=== PATIENT | female | born 1965 | race Asian ===

== ENCOUNTER 2017-10-15 05:16 | Inpatient (IN) | payer OTHER ==
[~2017-10-15] VITALS: Ht 162.6 cm; Wt 84.4 kg
--- NOTE | ~2017-10-15 | S ---
[facility] [place] [address] SURGICAL PATH RPT PROCEDURE Name: DERIC HAIRSTON Room #: 436-P ADM IN M.R.#: [id number] Admission: 10/15/17 Date of : 61 Discharge: Report #: [id number] Path Case #: [id number] PATHOLOGY REPORT COLLECTION DATE: 10/15/2017 RECEIVED DATE: 10/15/2017 SUBMITTING PHYS: Dr. Cortez Moralse OTHER PHYS: Dr. Charbel Blanco, SPECIMEN(S) RECEIVED: A.Gallbladder B.Appendix C.Abdominal scar D.Hernia sac * * * * * * * * * * * * FINAL DIAGNOSIS: A. Gallbladder, cholecystectomy: - Mild chronic cholecystitis. - Cholelithiasis. - One incidental lymph node. B. Appendix, appendectomy: - Fibrous obliteration of the tip. C. Abdominal scar: - Reactive changes and dense collagen compatible with scar. D. Hernia sac: - Congested tissue with mild chronic inflammation compatible with a hernia sac. (IUV:amador; 10/17/2017) PATHOLOGIST: Esme Machado M.D. REPORT ELECTRONICALLY SIGNED BY: Esme Machado M.D. DATE/TIME: 10/17/2017 13:43 * * * * * * * * * * * * GROSS PATHOLOGY: A. Received in formalin labeled "Deric Hairston, gallbladder," is an 8.2 x 3.6 x 3.0 cm, intact gallbladder with jones-mcdonald serosal surfaces. Opening the gallbladder reveals a velvety, bile-stained mucosa and an average wall thickness of 0.1 cm. Calculi are present displaying a yellow-mcdonald and multifaceted appearance, and no masses are noted grossly. At the cystic neck, there is a single lymph node present measuring 1.0 cm in maximum dimensions displaying pale mcdonald cut surfaces. [employer]ator [employer] Supervisor sections from the body and fundus are submitted along with the proximal margin in cassette A1, to include the lymph node, bisected. [address] [address] SURGICAL PATH RPT PROCEDURE Name: DERIC HAIRSTON Cassandra Room #: 436-P [facility] IN ..#: [id number] Admission: 10/15/17 Date of : 61 Discharge: Report #: [id number] Path Case #: [id number] B. Received in formalin labeled "Deric Hairston, appendix," is an appendix measuring 5.6 cm in length and up to 1.0 cm in diameter with a moderate amount of attached mesoappendix. The serosal surface is pink-mcdonald, glistening in appearance. Sectioning reveals a pinpoint to slightly patent lumen filled with fecal material. Incinerator Plant Supervisor sections are submitted in cassette B1. C. The specimen is received in formalin labeled "Deric Hairston, abdominal scar". Received is an elongated segment of white-mcdonald to dusky jones-mcdonald, wrinkled skin measuring 25.6 x 1.0 x 1.7 cm in greatest dimensions. The specimen is submitted representatively in cassette C1. D. Received in formalin labeled "Deric Hairston, hernia sac," are two pieces of fibroadipose tissue with attached fibromembranous tissue measuring 18.1 x 12.5 x 6.6 cm in aggregate dimensions. No nodules or lesions are identified. Incinerator Plant Supervisor tissue is submitted in cassette D1. (CAA; 10/16/2017) CLINICAL HISTORY: Ventral hernia INITIAL CPT CODE(S): A; 69677 B; 79080 C; 53183 D; 04168 Professional services performed by [facility] at [facility] [address], [place] [address] Technical services performed by [facility] at [address] [place] [address], [address], [place] [address]. [facility] [address] [place] [address] PHONE: [phone] DIRECTOR: Kishan Brock M.D. * * * END OF REPORT * * *
--- NOTE | ~2017-10-15 | EKG ---
[address] [address] ELECTROCARDIOGRAM REPORT Name: DERIC QUINTANA Room #: 150-3 ADM IN .R.#: [id number] Admission: 10/15/17 Attend Phys: Cortez Morales MD, Discharge: Date of : 61 Report #: [id number] THIS REPORT FOR: //name// [facility] Test Date: 2017-10-15 Test Time: 06:37:06 Pat Name: DERIC QUINTANA Department: Room: 150 3 Gender: F Supervisor [employer]: HOLLY : 1965 Requested By: Delio Vora Order Number: [id number] MD: Willi Bucio Measurements Intervals Clark Rate: 65 P: 7 DE: 156 QRS: 27 QRSD: 111 T: 8 QT: 422 QTc: 439 Interpretive Statements Sinus rhythm No significant abnormality No previous ECG available for comparison Electronically Signed On 10-15-2017 8:07:18 HISTORICAL SITE GUIDE by Willi Bucio [email or web address] <ELECTRONICALLY SIGNED> By: Willi Bucio MD, [facility] 10/15/17 0807 [id number] 0637 Willi Bucio MD, FACC /EPI
--- NOTE | ~2017-10-15 | O ---
[facility] [place] [address] OPERATIVE REPORT Name: DERIC QUINTANA Cassandra Room #: 436-P ADM IN M.R.#: [id number] Admission: 10/15/17 Attend Phys: Cortez Morales MD, Discharge: Date of : 61 Report #: [id number] THIS REPORT FOR: //name// CC: JAYSHREE physician/PCP Cortez Morales DATE OF SERVICE: 10/15/2017 PREOPERATIVE DIAGNOSES: 1. Recurrent incisional ventral hernia. 2. Obesity with a body mass index of 31. 3. Suspected intraabdominal adhesions. 4. Symptomatic cholelithiasis. POSTOPERATIVE DIAGNOSES: 1. Multiple incarcerated recurrent incisional ventral hernias. 2. Obesity with a body mass index of 31. 3. Dense and significant intraabdominal adhesions. 4. Symptomatic cholelithiasis. 5. Appendiceal dilatation and inflammation. 6. Ischemic abdominal wall fascia and hernia sac. 7. Loss of abdominal domain. PROCEDURES PERFORMED: 1. Exploratory laparotomy with extensive lysis of adhesions lasting 195 minutes. 2. Debridement of ischemic abdominal wall fascia and hernia sac. 3. Appendectomy. 4. Cholecystectomy. 5. Complex abdominal wall reconstruction with open repair of multiple incarcerated recurrent incisional ventral hernias with Prolene mesh. 6. Bilateral component separation of the abdominal wall of the transversus abdominis retrorectus (TAR) type. 7. Adjacent tissue transfer closure of the anterior abdominal wall, ultimately measuring 38 x 35 cm in dimension (1330 square cm). 8. Skin reduction surgery. 9. Topical wound VAC placement. 10. This is a modifier 22 procedure for extreme difficulty of procedure necessitating a greater than 3-hour lysis of adhesions coupled with the complex hernia repair techniques needing bilateral component separation to obtain complete abdominal wall closure. This is in addition to debriding the abdominal wall that was nonviable as well as performing adjacent tissue transfer closure of the skin and subcutaneous tissues overlying the fascial closure. This is all in a patient who is slightly obese with a body mass index of 31 with a thick abdominal wall and the procedure took greater than 5 hours as opposed to the usual 60-90 minute procedure. [facility] [address] [place] [address] OPERATIVE REPORT Name: DERIC QUINTANA Room #: 436-P [facility] IN ..#: [id number] Admission: 10/15/17 Attend Phys: Cortez Morales MD, Discharge: Date of : 61 Report #: [id number] SURGEON: Cortez Morales MD STEAM HEATING INSTALLER: Charbel Blanco DO ANESTHESIA: General endotracheal anesthesia with an epidural in place. ESTIMATED BLOOD LOSS: 200 mL COMPLICATIONS: None appreciated. SPECIMENS: 1. Gallbladder to pathology. 2. Appendix to pathology. 3. Nonviable ischemic abdominal wall fascia and hernia sac to pathology. 4. Skin to pathology. INDICATIONS: The patient is a 52-year-old slightly obese female who initially underwent an open Daniel procedure for perforated sigmoid diverticulitis. The patient then underwent an open reversal of her colostomy with suture repair of an incisional ventral hernia and unfortunately, had recurrence of that hernia once again. As the patient's hernia was quite large, she desired definitive surgical management and as this was palpable and expansive, we elected to proceed in the open fashion as well as excising her hypertrophic scar. DESCRIPTION OF PROCEDURE: After explaining the risks, benefits and alternatives of the procedure with the patient in detail in the preoperative holding area and obtaining written consent, the patient was brought to the operating room and placed supine on the operating room table. After conducting a thorough timeout procedure verifying correct patient and procedure, the patient was given general endotracheal anesthesia. Once adequate anesthesia was obtained, her SCDs were hooked up to pneumatic compression device. She was given a preoperative dose of antibiotics in line with the SCIP protocol. The patient's abdomen was prepped and draped in standard surgical sterile fashion. A #10 bladed scalpel was used to create an elliptical incision around her hypertrophic scar. Electrocautery was used to carry this down through skin and subcutaneous tissues to ensure hemostasis. The patient had significant fibrous tissues throughout the abdominal wall secondary to her prior use of an open abdominal wall wound VAC. Ultimately, we were able to gain access into the abdomen in the subxiphoid location and I proceeded to remove the entirety of the scar in a controlled fashion to prevent injury to the underlying structures from electrocautery chan. Once the scar was resected, it was passed off the field and I proceeded to continue opening the fascia in this controlled way. Ultimately, once I had opened the fascia down the midline, we were able to continue our lysis of adhesions taking down all adhesions of the small bowel and colon as well as [address] [address] OPERATIVE REPORT Name: LILIANDERIC Cassandra Room #: 436-P [facility] IN M.R.#: [id number] Admission: 10/15/17 Attend Phys: Cortez Morales MD, Discharge: Date of : 61 Report #: [id number] omentum from the posterior aspect of the anterior abdominal wall. There were numerous hernia defects encountered down the midline upon opening the fascia; however, there was no evidence of a parastomal hernia at the site of her colostomy reversal. Once I had taken all of these adhesions down, there was markedly dilated small bowel proximally and there appeared to be a relative obstructive point at approximately the mid jejunum. We now continued taking down all interloop adhesions of the small bowel in their entirety and ultimately showed normal small bowel. We now ran the small bowel 3 times from ligament of Treitz distally and back again showing no evidence of enterotomies, serosal injuries or defects whatsoever. The patient's appendix was markedly thickened, dilated and hyperinjected consistent with chronic appendicitis and as such, I did elect to resect this. A window was made in the mesentery near its base using electrocautery. The MINDY-75 mm blue load stapler was now used to transect the appendix at its healthy base. Deepthi clamps were used to elevate both the proximal and distal aspect of the appendix and the EnSeal X1 device was used to transect the mesoappendix for long-term hemostasis staying well away from the cecum. This was to prevent injury from thermal burn. The appendix was passed off the field as specimen and we had complete hemostasis. The staple line was seated nicely on the appendiceal base. The colon was evaluated and was healthy throughout. Now that we had taken down all adhesions, we were able to identify the gallbladder. The gallbladder itself was dilated and had numerous gallstones palpable with changes of chronic inflammation. Due to her symptomatic nature with postprandial nausea and intermittent right upper quadrant pain, we did perform a cholecystectomy at this time. A Pean clamp was used to elevate the fundus of the gallbladder anteriorly. An additional Pean was placed on the infundibulum and elevated inferiorly. Careful tedious dissection was now undertaken down around the cholecystocystic junction using a combination of blunt dissection with tonsil clamp, right angle clamp and electrocautery. Once I had attained a critical view, namely the cystic duct emanating from the infundibulum of the gallbladder and coursing the common bile duct as well as cystic artery running at the surface of the gallbladder, I created a window behind each, I transected the cystic duct between sets of clips by placing 1 clip along the gallbladder side and 3 along the common bile duct side and transecting between them with Metzenbaum scissors. Two clips were then placed along the cystic artery away from the gallbladder, one towards the gallbladder and this was transected as well using Metzenbaum scissors. The gallbladder was now resected off the liver bed using electrocautery to maintain hemostasis. At this juncture, we had complete hemostasis and the clips were seated nicely on both the cystic artery as well as the cystic duct stump remnant. I did place Surgicel in the bed of the gallbladder fossa at this juncture and packed it tightly with a lap pad. We now turned our attention to the hernia repairs. As all of her incisional hernias were down the midline, I evaluated approximating the fascia down the midline between Indu clamps. Unfortunately, there was approximately 3 cm spread down the midline even under maximal tension and as such, she would necessitate bilateral component separation. Prior to doing this, the patient's abdominal wall did show changes of ischemia from a prior [address] [address] OPERATIVE REPORT Name: LILIANDERIC Room #: 436-P ADM IN M.R.#: [id number] Admission: 10/15/17 Attend Phys: Cortez Morales MD, Discharge: Date of : 61 Report #: [id number] wound VAC utilization and scar tissue formation and as such, this was all resected with electrocautery back to healthy fascia and was passed off the field including the hernia sac in question. The fascial edges were now elevated with Indu clamps. I proceeded to score the posterior fascia approximately 0.5 cm lateral to the midline fascial wound. I was able to enter into the transversus space with electrocautery and proceeded to perform bilateral component separation of the transversus abdominis muscle as far craniocaudal as possible in both sides bilaterally. This allowed significant medial mobilization of the posterior tissues down the midline. The abdomen was irrigated and irrigant ran clear with no bleeding. I then closed the posterior layer using single stranded 0 PDS in standard running fashion. This brought this together nicely down the midline. We were now able to approximate the anterior rectus fascia without significant tension down the midline. I therefore selected a piece of Prolene hernia mesh measuring 30 x 30 cm in dimension. This was cut to shape, which was to be applied in the retrorectus space and was easily placed as far laterally as possible due to the bilateral transversus abdominis release. This was then placed in the retrorectus space and was anchored into place using 30 mL of Tisseel fibrin glue. Numerous sutures of 0 PDS were also placed, anchored into position throughout. I now placed two 19-Sudanese round Jd-Diaz drains in the retrorectus space, the one emanating from the right lower quadrant crossed over low in the pelvis and ran up the left gutter again of the retrorectus space. The other one emanated from left lower quadrant and crossed and ran up the right gutter. Both drains were anchored to the skin using 2-0 nylon in standard fashion. I now closed the anterior rectus fascial defect using looped #1 PDS in standard running fashion from inferior to superior aspects where it was tied down in the subxiphoid location. The subcutaneous space was irrigated with normal saline and it ran clear. Attempts at reapproximating the midline skin and subcutaneous tissue necessitated further excision of skin to tailor it appropriately and as there was a paucity of vascularized tissue due to her prior open wound VAC utilization, I did perform an adjacent tissue transfer closure of the anterior abdominal wall. Skin flaps were created and elevated and I proceeded to score internally along the lateral gutters with electrocautery. This allowed medial mobilization and rotation of vascularized subcutaneous tissue for complete coverage of overlying fascia. This was anchored down the midline using 3-0 PDS in standard subcuticular interrupted inverted fashion. I now closed the skin using the Insorb subcuticular absorbable cristina down the midline. A ANDREW topical wound VAC device was then placed over the wound as well. At the end of the lengthy procedure, all instruments, needle and sponge counts were correct. The patient tolerated the procedure without incident, was awakened in the operating room and transitioned to the recovery room in stable condition with no apparent complications. <ELECTRONICALLY SIGNED> By: Cortez Morales MD, FACS 10/16/17 1549 [id number] Cortez Morales MD, FACS /nt
[~2017-10-15 05:16] MED LIST: ASPIR 8181 MG PO; CENTRUM SILVER1 EAC4 PO; FISH OIL 1,001000 M2 PO; PROBIOTIC1 EAC3 PO; SYNTHROID150 MCG PO
[2017-10-15 07:07] VITALS: BP 124/76
[2017-10-15 15:02] VITALS: BP 115/60
[2017-10-15 17:00] VITALS: BP 101/59
[2017-10-15 17:30] VITALS: BP 109/62
[2017-10-15 18:00] VITALS: BP 110/61
[2017-10-15 18:30] VITALS: BP 110/62
[2017-10-16 03:04] VITALS: BP 114/66
[2017-10-16 05:41] LABS: HEMATOCRIT 36.4 % (37.0-47.0); HEMOGLOBIN 12.2 gm/dL (12.0-15.0); MCH 29.2 pg (26.0-34.0); MCHC 33.5 g/dL (28.0-37.0); MCV 87.1 fL (80.0-100.0); RBC 4.18 mil/uL (4.20-5.00); RDW 13.5 % (10.5-14.5); WBC 15.7 thou/uL (4.0-11.0)
[2017-10-16 06:10] LABS: CALCIUM 8.2 mg/dL (8.5-10.1); CREATININE 1.1 mg/dL (0.6-1.0); POTASSIUM 4.5 mmol/L (3.5-5.1)
[2017-10-16 08:00] VITALS: BP 102/62
[2017-10-16 15:50] VITALS: BP 101/60
[2017-10-16 19:44] VITALS: BP 113/61
[2017-10-17 04:00] VITALS: BP 111/65
[2017-10-17 05:45] LABS: BASOPHILS 0.2 % (0.0-2.0); EOSINOPHILS 0.4 % (0.0-3.0); HEMATOCRIT 29.5 % (37.0-47.0); LYMPHOCYTES 12.2 % (24.0-44.0); MCH 29.6 pg (26.0-34.0); MCHC 33.3 g/dL (28.0-37.0); MCV 88.8 fL (80.0-100.0); MONOCYTES 8.3 % (1.0-8.0); PLATELET COUNT 194 thou/uL (150-400); POLYS 78.9 % (36.0-66.0); RBC 3.32 mil/uL (4.20-5.00); RDW 13.4 % (10.5-14.5); WBC 12.6 thou/uL (4.0-11.0)
[2017-10-17 06:13] LABS: CALCIUM 8.2 mg/dL (8.5-10.1); POTASSIUM 4.3 mmol/L (3.5-5.1)
[2017-10-17 06:33] LABS: HEMOGLOBIN 9.8 gm/dL (12.0-15.0)
[2017-10-17 09:13] VITALS: BP 121/55
[2017-10-17 16:32] VITALS: BP 121/77
[2017-10-17 19:21] VITALS: BP 118/71
[2017-10-18 04:21] LABS: ABSOLUTE NEUTROPHILS 7.3 thou/uL (1.4-8.2); BASOPHILS 0.4 % (0.0-2.0); EOSINOPHILS 1.3 % (0.0-3.0); HEMATOCRIT 28.9 % (37.0-47.0); HEMOGLOBIN 9.7 gm/dL (12.0-15.0); LYMPHOCYTES 15.3 % (24.0-44.0); MCH 29.7 pg (26.0-34.0); MCHC 33.6 g/dL (28.0-37.0); MCV 88.6 fL (80.0-100.0); MONOCYTES 6.3 % (1.0-8.0); PLATELET COUNT 216 thou/uL (150-400); POLYS 76.7 % (36.0-66.0); RBC 3.26 mil/uL (4.20-5.00); RDW 13.5 % (10.5-14.5); WBC 9.5 thou/uL (4.0-11.0)
[2017-10-18 04:28] LABS: CALCIUM 8.2 mg/dL (8.5-10.1); CREATININE 0.8 mg/dL (0.6-1.0); POTASSIUM 4.6 mmol/L (3.5-5.1)
[2017-10-18 04:30] VITALS: BP 143/80
[2017-10-18 08:24] VITALS: BP 135/74
[2017-10-18 16:35] VITALS: BP 127/71
[2017-10-18 19:34] VITALS: BP 156/92
[2017-10-19 03:26] VITALS: BP 157/79
[2017-10-19 08:00] VITALS: BP 174/92
[2017-10-19 16:00] VITALS: BP 153/81
[2017-10-19 19:39] VITALS: BP 152/93
[2017-10-20 03:12] LABS: HEMATOCRIT 31.9 % (37.0-47.0); HEMOGLOBIN 10.7 gm/dL (12.0-15.0); MCH 29.4 pg (26.0-34.0); MCHC 33.6 g/dL (28.0-37.0); MCV 87.4 fL (80.0-100.0); RBC 3.66 mil/uL (4.20-5.00); WBC 9.6 thou/uL (4.0-11.0)
[2017-10-20 03:22] LABS: CALCIUM 9.1 mg/dL (8.5-10.1); CREATININE 0.7 mg/dL (0.6-1.0); POTASSIUM 3.8 mmol/L (3.5-5.1)
[2017-10-20 03:49] VITALS: BP 139/69
[2017-10-20 08:45] VITALS: BP 134/72
[2017-10-20] MEDS ORDERED: TRAMADOL 50 MG50 MG PO (11:16)
[2017-10-20] MEDS ORDERED: NEURONTIN 300300 M1 PO (11:16)
[2017-10-20 11:59] VITALS: BP 134/72
[2017-10-20 13:46] VITALS: BP 134/72
== END 2017-10-20 14:45 | disposition home or self-care (01) | DRG 336 ==
LOC: 4S 05:16 → TBA 05:16 → PRE 07:24 → 4S 15:06 → PRE 15:13 → 4S 10-20 14:45
PROVIDERS: Surgery
PROC: 0DN84ZZ Release Small Intestine, Percutaneous Endoscopic Approach (ICD-10-PCS; principal; 2017-10-15)
PROC: 0WUF4JZ Supplement Abdominal Wall with Synthetic Substitute, Percutaneous Endoscopic Approach (ICD-10-PCS; principal; 2017-10-15)
PROC: 0FT44ZZ Resection of Gallbladder, Percutaneous Endoscopic Approach (ICD-10-PCS; principal; 2017-10-15)
PROC: 0JB80ZZ Excision of Abdomen Subcutaneous Tissue and Fascia, Open Approach (ICD-10-PCS; principal; 2017-10-15)
PROC: 0DTJ4ZZ Resection of Appendix, Percutaneous Endoscopic Approach (ICD-10-PCS; principal; 2017-10-15)
PROC: 0WJG0ZZ Inspection of Peritoneal Cavity, Open Approach (ICD-10-PCS; principal; 2017-10-15)
DX: K43.0 Incisional hernia with obstruction, without gangrene (principal); K56.50 Intestinal adhesions [bands], unspecified as to partial versus complete obstruction; E66.01 Morbid (severe) obesity due to excess calories; K80.20 Calculus of gallbladder without cholecystitis without obstruction; F41.9 Anxiety disorder, unspecified; Z68.31 Body mass index [BMI] 31.0-31.9, adult
CPT/HCPCS: 10102; 50010; 50093; 50101; 50331; 50386; 50455; 50507; 50648; 51412; 51437; 51712; 55075; 56525; 56526; 56527; 56530; 56639; 56762; 56771; 57092; 62110; 62900; 65002; 65075; 70005